=== PATIENT | female | born 2000 | race African-American/Black ===

== ENCOUNTER 2023-06-30 19:23 | Emergency (ER) | payer OTHER, BC, SELFPAY ==
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
[2023-06-30 19:52] VITALS: BP 129/87; PULSE 72; RESP 14; TEMP 36.4; O2SAT 100
[2023-06-30 21:01] VITALS: BP 123/75; PULSE 65; RESP 17; O2SAT 100
[2023-06-30] MEDS: KETOROLAC (*BKC) 60 MG/2 ML VIAL IM (21:49)
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
[2023-06-30 22:20] VITALS: BP 128/79; PULSE 67; RESP 15; O2SAT 100
== END 2023-06-30 22:22 | disposition home or self-care (01) ==
PROVIDERS: Emergency Provider Physician Assistant
DX: S16.1XXA Strain of muscle, fascia and tendon at neck level, initial encounter (principal); S46.911A Strain of unspecified muscle, fascia and tendon at shoulder and upper arm level, right arm, initial encounter; V43.52XA Car driver injured in collision with other type car in traffic accident, initial encounter; Y92.411 Interstate highway as the place of occurrence of the external cause
CPT/HCPCS: 72040; 73030; 96372; 99284; J1885

== ENCOUNTER 2023-11-08 16:08 | Emergency (ER) | payer BC, SELFPAY ==
--- NOTE | ~2023-11-08 | XR_ITS ---
EXAM: XR wrist RT min 3V DATE: 11/08/2023 17:04 HISTORY: pain, swelling rt wrist . COMPARISON: None available. FINDINGS: Normal mineralization. No fracture or dislocation. No lytic or blastic lesion. Joint space s are maintained. No erosion or periosteal change. Soft tissues within normal limits. IMPRESSION: No acute osseous finding in the right wrist. Reviewed, dictated and finalized at location K.
[2023-11-08 16:17] VITALS: BP 133/65; PULSE 92; RESP 16; TEMP 37.4; O2SAT 99
--- NOTE | 2023-11-08 16:45 | ED.EXTPRO ---
HPI - Extremity Problem General Chief complaint: Extremity Problem,Nontraumatic Stated complaint: Wrist Pain Time Seen by Provider: 11/08/23 16:45 Source: patient Mode of arrival: ambulatory Limitations: no limitations History of Present Illness HPI Narrative: 23 yo F presents with c/o R wrist pain and swelling for 3 days. Pt reports she was at gym on and lifted weights that were too heavy for her. States she only lifted them to move them out of the way so she could do leg exercises. Did not do multiple reps with these weights. had pain to R wrist after lifting the weights that has gotten progressively worse with swelling and decreased ROM. All systems reviewed and negative except as noted above. Related Data Home Medications Medication Instructions Recorded Confirmed albuterol sulfate 90 mcg/actuation 2 inh inhalation DIRECTED 11/08/23 11/08/23 aerosol inhaler etonogestrel 0.12 mg-ethinyl 1 vag ring vaginal DIRECTED 11/08/23 11/08/23 estradiol 0.015 mg/24 hr vaginal ring (Reinaldo) Allergies Allergy/AdvReac Type Severity Reaction Status Date / Time No Known Allergies Allergy Verified 11/08/23 17:50 Review of Systems Review of Systems: CONSTITUTIONAL: Denies fever, chills, or sweats. EYES: Denies visual changes, redness, or discharge. ENT: Denies rhinorrhea, congestion, sore throat, or otalgia. CARDIOVASCULAR: Denies chest pain, palpitations, or edema. RESPIRATORY: Denies cough or dyspnea. GASTROINTESTINAL: Denies abdominal pain, nausea, vomiting, or diarrhea. GENITOURINARY: Denies dysuria or hematuria. SKIN: Denies rash or itching. MUSCULOSKELETAL: Denies back pain or myalgia. Reports pain and swelling to right wrist with decreased range of motion. NEUROLOGIC: Denies headache, numbness, or weakness. PSYCHIATRIC: Denies anxiety or depression. All other systems reviewed are negative, except as documented in HPI. PMFSH Comments At time of signature, agree with nursing past medical, surgical, social and family history. There is no relevant family history pertinent to the presenting complaint. Exam Narrative: GENERAL: This is a well-nourished, well-developed patient, in no apparent distress. HEAD: normocephalic, atraumatic. EYES: PERRL. Sclera clear/white. Vision is grossly intact. EARS: External ears normal NOSE: External nose normal NECK: Neck supple, non-tender without lymphadenopathy, masses or thyromegaly. CARDIOVASCULAR: Regular rate and rhythm without murmurs, gallops, or rubs. RESPIRATORY: Clear to auscultation. Breath sounds equal bilaterally. No wheezes, rales, or rhonchi. SKIN: warm, Dry, intact with no suspicious lesions or rash, good texture and turgor. NEURO: awake, alert, and oriented to person, place and time. There were no obvious focal neurologic abnormalities. EXTREMITIES: tenderness to posterior aspect R wrist with some tenderness also into forearm. Swelling to wrist and forearm. ROM decreased. Also pain with movement of R thumb. Course Course Level of Care: Express Care Visit Vital Signs Vital signs: Vital Signs Temperature 37.4 C 11/08/23 16:17 Pulse Rate 92 11/08/23 16:17 Respiratory Rate 16 11/08/23 16:17 Blood Pressure 133/65 11/08/23 16:17 Pulse Oximetry 99 11/08/23 16:17 Temperature 37.4 C 11/08/23 16:17 Pulse Rate 92 11/08/23 16:17 Respiratory Rate 16 11/08/23 16:17 Blood Pressure 133/65 11/08/23 16:17 Pulse Oximetry 99 11/08/23 16:17 Review MDM - Extremity (Nontraumatic) MDM Narrative Medical decision making narrative: Patient is aware of diagnosis, understands and agrees to treatment plan. Anticipatory guidance given. Patient agrees to follow-up as directed and is aware of reasons to seek care at the emergency department. Portions of this record may have been created with voice recognition software X-ray negative for fracture. Armani wrap placed Express Care. Recommend patient purchase a thum
== END 2023-11-08 16:47 | disposition home or self-care (01) ==
PROVIDERS: Emergency Provider Nurse Practitioner Family; PCP Nurse Practitioner
DX: S63.501A Unspecified sprain of right wrist, initial encounter (principal); S66.911A Strain of unspecified muscle, fascia and tendon at wrist and hand level, right hand, initial encounter; X50.0XXA Overexertion from strenuous movement or load, initial encounter; Y93.B3 Activity, free weights
CPT/HCPCS: 73110; 99213; G0463